=== PATIENT | female | born 1985 ===

== ENCOUNTER 2018-02-15 12:56 | Emergency (ER) | payer MEDICAID ==
[2018-02-15 13:05] VITALS: BP 137/89; PULSE 81; TEMP 98; O2SAT 99
--- NOTE | 2018-02-15 13:51 | ED PDOC ---
HPI: Female Pain Time Seen by Provider: 02/15/18 13:08 Chief Complaint (Nursing): Female Genitourinary Chief Complaint (Provider): Vaginal Bleeding History Per: Patient History/Exam Limitations: no limitations Onset/Duration Of Symptoms: Hrs (This morning) Current Symptoms Are (Timing): Still Present Additional Complaint(s): 32 year old female presents to the ED complaining of vaginal bleeding which began this morning. Patient reports she noticed bright red blood which subsided. Denies blood clots, abdominal pain, vaginal discharge, or urinary problems. Patient is 7 weeks and LMP was January 05. Patient states she has not had an ultrasound for this . She is . In the past, her gel coat sprayer was Dr. Clif Wheatley. PMD: [facility] Past Medical History Reviewed: Historical Data, Nursing Documentation, Vital Signs Vital Signs: Last Vital Signs Temp 98 F 02/15/18 13:03 Pulse 81 02/15/18 13:03 Resp 18 02/15/18 13:03 BP 137/89 02/15/18 13:03 Pulse Ox 99 02/15/18 13:03 - Medical History PMH: No Chronic Diseases - Surgical History Surgical History: (x1) - Family History Family History: States: Unknown Family Hx - Home Medications Home Medications: Ambulatory Orders Medication Instructions Recorded Oxycodone HCl/Acetaminophen 1 tab PO Q6H PRN #15 tab 08/18/14 [Percocet 325 mg-5 mg] RX: Levofloxacin [Levofloxacin 5 0 ml TOP ASDIR #0 yvan 08/18/14 ml] Erythromycin 0.5% [Ilytocin] 1 cm RIGHTEYE QID #1 tube 06/02/16 RX: Ibuprofen [Motrin Tab] 600 mg PO Q8 PRN #60 tab 06/02/16 RX: Non-Formulary 1 ea RIGHTEYE PRN PRN #1 ea 06/02/16 oxyCODONE/Acetaminophen [Percocet 1 tab PO QID PRN #12 tab 06/02/16 5/325 mg Tab] - Allergies Allergies/Adverse Reactions: Allergies Allergy/AdvReac Type Severity Reaction Status Date / Time codeine Allergy NAUSEA Verified 06/02/16 18:45 doxycycline Allergy RASH Verified 06/02/16 18:45 Review of Systems ROS Statement: Except As Marked, All Systems Reviewed And Found Negative Gastrointestinal: Negative for: Abdominal Pain Genitourinary Female: Positive for: Vaginal Bleeding. Negative for: Dysuria, Hematuria, Vaginal Discharge, Other (blood clots) Physical Exam - Reviewed Nursing Documentation Reviewed: Yes Vital Signs Reviewed: Yes - Physical Exam Appears: Positive for: Non-toxic, No Acute Distress Head Exam: Positive for: ATRAUMATIC, NORMOCEPHALIC Skin: Positive for: Normal Color, Warm, Dry Eye Exam: Positive for: Normal appearance Neck: Positive for: Normal, Painless ROM Cardiovascular/Chest: Positive for: Regular Rate, Rhythm Respiratory: Positive for: Normal Breath Sounds. Negative for: Wheezing, Respiratory Distress Gastrointestinal/Abdominal: Positive for: Normal Exam, Soft. Negative for: Tenderness Back: Positive for: Normal Inspection. Negative for: L CVA Tenderness, R CVA Tenderness Extremity: Positive for: Normal ROM Neurologic/Psych: Positive for: Alert, Oriented. Negative for: Motor/Sensory Deficits - Laboratory Results Result Diagrams: 02/15/18 14:25 02/15/18 14:25 - ECG O2 Sat by Pulse Oximetry: 99 (RA) Pulse Ox Interpretation: Normal Medical Decision Making Medical Decision Making: Initial Impression: Vaginal bleeding in differential includes ectopic , threatened miscarriage, spontaneous Initial Plan: --Type and screen stat --BMP -- serum stat --ED urine --ED urine dipstick --CBC --OB transvaginal US 15:[address] Hein. Pending US and labs. Scribe Attestation: Documented by Edin Trujillo acting as a scribe for Brianne Velasco MD. Provider Scribe Attestation: All medical record entries made by the Scribe were at my direction and personally dictated by me. I have reviewed the chart and agree that the record accurately reflects my personal performance of the history, physical exam, medical decision making, and the department course for this patient. I have also personally directed, reviewed, and agree with the discharge instructions and disposition. Disposition - Clinical Impression Clinical Impression: Threatened in early - Patient ED Disposition Is Patient to be Admitted: No Counseled Patient/Family Regarding: Studies Performed, Diagnosis - Disposition Disposition: Transfer of Care Disposition Time: 15:00 Condition: STABLE Additional Instructions: Follow up with your gel coat sprayer in 2 days for repeat hormone levels. Return to the emergency department if you develop worsened pain, weakness, heavy bleeding, or other new symptoms. Instructions: Threatened Miscarriage (DC) Forms: [employer] (Georgian) Print Language: AMHARIC
[2018-02-15 14:34] LABS: BASO # 0.1 K/uL (0.0-0.2); BASO % 1.5 % (0.0-2.0); EOS # 0.4 K/uL (0.0-0.7); EOS % 5.1 % (0.0-4.0); HEMOGLOBIN 13.6 g/dL (12.0-16.0); LYMPH # 2.7 K/uL (1.0-4.3); LYMPH % 37.6 % (20.0-40.0); MEAN CELL VOLUME 80.8 fl (81.0-99.0); MEAN CORPUSCULAR HEMOGLOBIN 26.6 pg (27.0-31.0); MONO # 0.4 K/uL (0.0-0.8); MONO % 6.3 % (0.0-10.0); NEUT # 3.5 K/uL (1.8-7.0); NEUT % 49.5 % (50.0-75.0); NRBC % 0.1 % (0.0-0.0); RBC 5.09 Mil/uL (3.80-5.20); RED CELL DISTRIBUTION WIDTH 14.5 % (11.5-14.5); WHITE BLOOD COUNT 7.1 K/uL (4.8-10.8)
[2018-02-15 14:44] LABS: BLOOD UREA NITROGEN 14 mg/dl (7-17); CALCIUM 8.9 mg/dL (8.4-10.2); GFR NON-AFRICAN AMERICAN > 60
--- NOTE | 2018-02-15 15:18 | ED PDOC ---
- Laboratory Results Result Diagrams: 02/15/18 14:25 02/15/18 14:25 - ECG O2 Sat by Pulse Oximetry: 99 (RA) Medical Decision Making Medical Decision Makin:00 Patient endorsed to this provider from Dr. Velasco. Pending US and labs. Scribe Attestation: Documented by Edin Trujillo acting as a scribe for Evelyn Hein MD. Provider Scribe Attestation: All medical record entries made by the Scribe were at my direction and personally dictated by me. I have reviewed the chart and agree that the record accurately reflects my personal performance of the history, physical exam, medical decision making, and the department course for this patient. I have also personally directed, reviewed, and agree with the discharge instructions and disposition. Pt with hcg of 5.08. US shows no IUP but no evidence of ectopic . PT continues to actively bleed but vitals remain stable. Spoke with patient's vacuum filter operator, Dr. Byrd, who will see the patient in 2 days and will arrange follow up outpatient ultrasound. Return parameters discussed with the patient. Disposition - Clinical Impression Clinical Impression: Threatened in early - POA Present On Arrival: None - Disposition Disposition: Routine/Home Disposition Time: 17:41 Condition: STABLE Additional Instructions: Follow up with your vacuum filter operator in 2 days for repeat hormone levels. Return to the emergency department if you develop worsened pain, weakness, heavy bleeding, or other new symptoms. Instructions: Threatened Miscarriage (DC) Forms: [employer] (Khmer) Print Language: VIETNAMESE
--- NOTE | 2018-02-15 16:28 | US ---
Date of service: 02/15/2018 HISTORY: vaginal bleeding COMPARISON: None available. TECHNIQUE: Transvaginal pelvic ultrasound was performed with longitudinal and transverse images submitted for interpretation. FINDINGS: Left central appears reported 01/05/2018 suggesting 5 week 6 gestation. UTERUS: Measures 7.7 x 4.0 x 4.6 cm. Uterus is normal in size appearing anteverted with no discrete myometrial lesion appreciated throughout. ENDOMETRIUM: Measures 9.0 mm in diameter. Trilaminar echo-pattern is appreciated throughout the endometrium without fluid collection or gestational sac appreciable. CERVIX: Nabothian cyst identified in the posterior cervix with the cervix otherwise unremarkable. RIGHT OVARY: Measures 3.3 x 2.1 x 2.2 cm. No solid mass. Normal flow. LEFT OVARY: Measures 2.0 x 1.6 x 2.3 cm. No solid mass. Normal flow. FREE FLUID: No significant free fluid noted. OTHER FINDINGS: None. IMPRESSION: No intrauterine gestation identified. No definitive ectopic gestation appreciable. Differential diagnosis consists of early nonvisualized intrauterine gestation, failure of gestation or nonvisualized ectopic gestation. Follow-up serial beta HCG analysis is recommended as well as one-week follow-up pelvic ultrasound.
[2018-02-15 18:27] VITALS: RESP 17
== END 2018-02-15 17:55 | disposition home or self-care (01) ==
LOC: H.ER 12:56
DX: O20.0 Threatened abortion (principal); Z3A.01 Less than 8 weeks gestation of pregnancy

== ENCOUNTER 2018-04-10 11:49 | Emergency (ER) | payer MEDICAID ==
[2018-04-10 11:53] VITALS: BMI 357.1
--- NOTE | 2018-04-10 13:00 | ED PDOC ---
HPI: General Adult Time Seen by Provider: 04/10/18 12:12 Chief Complaint (Nursing): Flu-like Symptoms Chief Complaint (Provider): Flu-like symptoms History Per: Patient History/Exam Limitations: no limitations Onset/Duration Of Symptoms: Days (1x month) Current Symptoms Are (Timing): Still Present Severity: Moderate Additional Complaint(s): 32 year old female with no significant medical history presents to the ED for an evaluation of flu-like symptoms, ongoing for 1x month. Patient reports that 1x month ago she developed a cough productive of green sputum. The cough has persisted until today, but it is dry and non-productive. Patient reports that 1x week ago she developed a fever (103 F for 3x days) and a sore throat, both of which have subsided at this time. Patient reports having bodyaches, generally feeling unwell, having continuous nasal congestion, and constipation (with one small BM yesterday). Patient denies having rhinorrhea, headaches, ear pain, shortness of breath, chest pain, nausea, vomiting, and abdominal pain. Of note: pt states that she had a miscarriage in 01/2018 and has not had a period since that time. PMD: [facility] Past Medical History Reviewed: Historical Data, Nursing Documentation, Vital Signs Vital Signs: Last Vital Signs Temp 97.7 F 04/10/18 11:53 Pulse 74 04/10/18 11:53 Resp 17 04/10/18 11:53 BP 135/77 04/10/18 11:53 Pulse Ox 100 04/10/18 11:53 SHAWNA Report Viewed: Yes - Medical History PMH: No Chronic Diseases - Surgical History Surgical History: (x1) - Family History Family History: States: No Known Family Hx - Social History Alcohol: Social Drugs: Denies - Home Medications Home Medications: Ambulatory Orders Medication Instructions Recorded Levofloxacin [Levofloxacin 5 ml] 0 ml TOP ASDIR #0 yvan 08/18/14 Oxycodone HCl/Acetaminophen 1 tab PO Q6H PRN #15 tab 08/18/14 [Percocet 325 mg-5 mg] Erythromycin 0.5% [Ilytocin] 1 cm RIGHTEYE QID #1 tube 06/02/16 Ibuprofen [Motrin Tab] 600 mg PO Q8 PRN #60 tab 06/02/16 Non-Formulary 1 ea RIGHTEYE PRN PRN #1 ea 06/02/16 oxyCODONE/Acetaminophen [Percocet 1 tab PO QID PRN #12 tab 06/02/16 5/325 mg Tab] - Allergies Allergies/Adverse Reactions: Allergies Allergy/AdvReac Type Severity Reaction Status Date / Time codeine Allergy NAUSEA Verified 04/10/18 12:23 doxycycline Allergy RASH Verified 04/10/18 12:23 Review of Systems ROS Statement: Except As Marked, All Systems Reviewed And Found Negative Constitutional: Positive for: Other (bodyahes, generally feeling unwell). Negative for: Fever (fever (103 F) 1x week ago for 3x days, has since subsided.) ENT: Positive for: Nose Congestion. Negative for: Ear Pain, Nose Discharge, Throat Pain (throat pain 1x week ago, has since subsided) Cardiovascular: Negative for: Chest Pain Respiratory: Positive for: Cough (cough was productive of green sputum at onset of symptoms, cough is now dry ). Negative for: Shortness of Breath Gastrointestinal: Positive for: Constipation. Negative for: Nausea, Vomiting, Abdominal Pain, Diarrhea Physical Exam - Reviewed Nursing Documentation Reviewed: Yes Vital Signs Reviewed: Yes - Physical Exam Appears: Positive for: Non-toxic, Uncomfortable Head Exam: Positive for: ATRAUMATIC, NORMOCEPHALIC Skin: Positive for: Normal Color, Warm, Dry Eye Exam: Positive for: Normal appearance ENT: Positive for: Other ((+) swollen nasal turbinates bilaterally, otherwise ENT exam normal) Cardiovascular/Chest: Positive for: Regular Rate, Rhythm Respiratory: Positive for: Normal Breath Sounds Gastrointestinal/Abdominal: Positive for: Normal Exam Lymphatic: Positive for: Normal Exam Neurologic/Psych: Positive for: Alert, Oriented (3x) - Laboratory Results Result Diagrams: 04/10/18 12:58 04/10/18 12:58 Urine POC: Positive - ECG O2 Sat by Pulse Oximetry: 100 (RA) Pulse Ox Interpretation: Normal - CT Scan/US US transvaginal Other Rad Studies (CT/US): Read By Radiologist, Radiology Report Reviewed (see MDM note) Medical Decision Making Medical Decision Makin:12 Initial impression: 32 year old female with flu-like symptoms. Initial plan: * CBC * CMP * XRay chest PA & LAT * upreg * rapid flu * mono * tylenol 650 mg PO * flonase * reevaluation 12:45 Upreg positive, patient informed of results. XRay chest cancelled, beta-HCG and transvaginal ultrasound ordered. 14:28 US transvaginal read and reviewed by radiologist Gestational concordance approximately 6 weeks discordance noted. Yolk sac identified Cervix: No Cervical abnormalities: Negative examination for cervical dilatation or effacement. Closed cervix. Incidental finding(s): Incidental finding: Nabothian cysts the largest measures 6 x 11 mm. Subchorionic hemorrhage: None UTERUS: 7.1 x 5.1 x 8.6 cm. ADNEXA: Right: 2.2 x 2.4 x 2.8 cm. Normal Doppler arterial waveform documented. Left: 1.5 x 2.5 x 2.6 cm. Normal Doppler arterial waveform documented Fluid in the cul-de-sac: IMPRESSION: 7 weeks 1 day live intrauterine gestation. Discordance based on gestational age derived from LMP of 13 weeks 4 days. 15:00: patient informed of ultrasound results. States that since hearing of her , her other symptoms are of no consequence to her. She generally feels a little better. Patient given [facility] and advised to take Tylenol for bodyaches. Scribe Attestation: Documented Sugey Moore, acting as a scribe for Arline Woodson PA-C. Provider Scribe Attestation: All medical record entries made by the Scribe were at my direction and personally dictated by me. I have reviewed the chart and agree that the record accurately reflects my personal performance of the history, physical exam, medical decision making, and the department course for this patient. I have also personally directed, reviewed, and agree with the discharge instructions and disposition. Disposition - Clinical Impression Clinical Impression: Viral upper respiratory illness, - Patient ED Disposition Is Patient to be Admitted: No Counseled Patient/Family Regarding: Studies Performed, Diagnosis, Need For Followup - Disposition Referrals: [facility] [Outside] Disposition: Routine/Home Disposition Time: 15:17 Condition: STABLE Additional Instructions: F/u with process area supervisor for care. Return to ER if you develop shortness of breath or recurrent fevers or if you develop abdominal pain or vaginal bleeding. You can use Tylenol for body discomfort. Avoid Ibuprofen in . Instructions: Viral Upper Respiratory Infection, Adult (DC) Forms: [employer] (Uruguayan), [facility] ED School/Work Excuse Print Language: PITCAIR[place] ISLANDER
[2018-04-10 13:50] LABS: BASO # 0.1 K/uL (0.0-0.2); BASO % 0.8 % (0.0-2.0); EOS # 0.5 K/uL (0.0-0.7); EOS % 5.5 % (0.0-4.0); HEMOGLOBIN 13.5 g/dL (12.0-16.0); LYMPH % 32.7 % (20.0-40.0); MEAN CELL VOLUME 80.6 fl (81.0-99.0); MEAN CORPUSCULAR HEMOGLOBIN 26.6 pg (27.0-31.0); MEAN PLATELET VOLUME 7.2 fl (7.2-11.7); MONO # 0.5 K/uL (0.0-0.8); MONO % 5.9 % (0.0-10.0); NEUT % 55.1 % (50.0-75.0); NRBC % 0.1 % (0.0-0.0); RBC 5.09 Mil/uL (3.80-5.20); RED CELL DISTRIBUTION WIDTH 14.4 % (11.5-14.5); WHITE BLOOD COUNT 9.1 K/uL (4.8-10.8)
[2018-04-10 14:04] LABS: ALB/GLOB RATIO 1.1 (1.0-2.1); ALBUMIN 4.2 g/dL (3.5-5.0); ALT/SGPT 26 U/L (9-52); AST/SGOT 26 U/L (14-36); BLOOD UREA NITROGEN 5 mg/dl (7-17); CALCIUM 9.2 mg/dL (8.4-10.2); GFR NON-AFRICAN AMERICAN > 60
--- NOTE | 2018-04-10 14:31 | US ---
Date of service: 04/10/2018 PROCEDURE: First trimester ultrasound HISTORY: + urine preg, unidentified gestation 01/2018 COMPARISON: None TECHNIQUE: Standard protocol for this study/examination. FINDINGS: LMP: 01/05/2018 Prior examinations from the current : None TECHNIQUE: Real-time 2D imaging, duplex and color Doppler. FINDINGS: Cardiac activity: Present Rate: 4 8 BPM Measurements: Peculiar rump length: 1.08 cm Gestational age based on CRL 7 weeks 1 day Gestational age 7 weeks 1 day based on gestational sac measurement 2.50 cm Gestational age derived from LMP: 13 weeks 4 days DIOMEDES based on LMP: 10/12/2018 DIOMEDES based on biometry: 11/26/2018. Gestational concordance approximately 6 weeks discordance noted. Yolk sac identified Cervix: No Cervical abnormalities: Negative examination for cervical dilatation or effacement. Closed cervix. Incidental finding(s): Incidental finding: Nabothian cysts the largest measures 6 x 11 mm. Subchorionic hemorrhage: None UTERUS: 7.1 x 5.1 x 8.6 cm. ADNEXA: Right: 2.2 x 2.4 x 2.8 cm. Normal Doppler arterial waveform documented. Left: 1.5 x 2.5 x 2.6 cm. Normal Doppler arterial waveform documented Fluid in the cul-de-sac: IMPRESSION: 7 weeks 1 day live intrauterine gestation. Discordance based on gestational age derived from LMP of 13 weeks 4 days.
[2018-04-10 15:29] VITALS: BP 122/70; PULSE 78; RESP 18; TEMP 98
[2018-04-11 21:10] VITALS: O2SAT 100
== END 2018-04-10 15:17 | disposition home or self-care (01) ==
LOC: H.ER 11:49
DX: J11.1 Influenza due to unidentified influenza virus with other respiratory manifestations (principal); O34.41 Maternal care for other abnormalities of cervix, first trimester; O99.511 Diseases of the respiratory system complicating pregnancy, first trimester; O99.611 Diseases of the digestive system complicating pregnancy, first trimester; N88.8 Other specified noninflammatory disorders of cervix uteri; K59.00 Constipation, unspecified; Z3A.13 13 weeks gestation of pregnancy

== ENCOUNTER 2018-05-18 11:17 | Emergency (ER) | payer MEDICAID ==
[2018-05-18 11:19] VITALS: BMI 357.1
[2018-05-18 11:43] VITALS: BP 112/75; PULSE 105; RESP 19; TEMP 98.7; O2SAT 97
[2018-05-18 12:15] LABS: BASO # 0.1 K/uL (0.0-0.2); BASO % 0.7 % (0.0-2.0); EOS # 0.9 K/uL (0.0-0.7); LYMPH % 23.9 % (20.0-40.0); MEAN CELL VOLUME 78.5 fl (81.0-99.0); MEAN CORPUSCULAR HEMOGLOBIN 26.1 pg (27.0-31.0); MEAN CORPUSCULAR HGB CONC 33.2 g/dL (33.0-37.0); MEAN PLATELET VOLUME 7.4 fl (7.2-11.7); MONO # 0.5 K/uL (0.0-0.8); MONO % 6.3 % (0.0-10.0); NEUT # 4.8 K/uL (1.8-7.0); NEUT % 58.1 % (50.0-75.0); NRBC % 0.3 % (0.0-0.0); RBC 4.61 Mil/uL (3.80-5.20); RED CELL DISTRIBUTION WIDTH 14.5 % (11.5-14.5); WHITE BLOOD COUNT 8.3 K/uL (4.8-10.8)
[2018-05-18 12:21] LABS: SQUAMOUS EPITHIAL 23 /hpf (0-5); URINE BACTERIA RARE (<OCC); URINE BILIRUBIN NEGATIVE (NEGATIVE); URINE BLOOD SMALL (NEGATIVE); URINE CLARITY CLOUDY (Clear); URINE COLOR YELLOW (YELLOW); URINE GLUCOSE (UA) NEG (NEGATIVE); URINE LEUKOCYTE ESTERASE TRACE Leu/uL (Negative); URINE PROTEIN 30 mg/dL (NEGATIVE)
--- NOTE | 2018-05-18 12:28 | ED PDOC ---
HPI: Female Pain Time Seen by Provider: 05/18/18 11:36 Chief Complaint (Nursing): Female Genitourinary Chief Complaint (Provider): vaginal spotting, History Per: Patient History/Exam Limitations: no limitations Onset/Duration Of Symptoms: Days (3), Intermittent Episodes Current Symptoms Are (Timing): Intermittent Episodes Severity: Mild Quality Of Discomfort: Pressure. denies: Sharp, Dull, Aching, Cramping, Burning, Stabbing Associated Symptoms: denies: Fever, Chills, Nausea, Vomiting, Back Pain, Urinary Symptoms Additional Complaint(s): 32yo female states approx 14 weeks presents c/o brown/red discharge when she wipes over the weekend. States feels mild "pulling" on right side but denies pelvic pain or cramping. Denies urinary symptoms or back pain. Denies weakness, fever or sexual activity within last 2 weeks. Notes ongoing nasal congestion and some cough/ wheeze, denies swelling, chest pain or syncope. Has prior hx of placental previa on prior . OB [place] Abnormal Vaginal Bleeding: Yes Last Menstral Period: unsure Past Medical History Reviewed: Historical Data, Nursing Documentation, Vital Signs Vital Signs: Last Vital Signs Temp 98.7 F 05/18/18 11:38 Pulse 105 H 05/18/18 11:38 Resp 19 05/18/18 11:38 BP 112/75 05/18/18 11:38 Pulse Ox 97 05/18/18 11:38 - Medical History PMH: No Chronic Diseases - Surgical History Surgical History: (x1) - Family History Family History: States: Unknown Family Hx - Social History Current smoker - smoking cessation education provided: No - Home Medications Home Medications: Ambulatory Orders Medication Instructions Recorded Oxycodone HCl/Acetaminophen 1 tab PO Q6H PRN #15 tab 08/18/14 [Percocet 325 mg-5 mg] RX: Levofloxacin [Levofloxacin 5 0 ml TOP ASDIR #0 yvan 08/18/14 ml] Erythromycin 0.5% [Ilytocin] 1 cm RIGHTEYE QID #1 tube 06/02/16 RX: Ibuprofen [Motrin Tab] 600 mg PO Q8 PRN #60 tab 06/02/16 RX: Non-Formulary 1 ea RIGHTEYE PRN PRN #1 ea 03/05/17 oxyCODONE/Acetaminophen [Percocet 1 tab PO QID PRN #12 tab 06/02/16 5/325 mg Tab] RX: Albuterol HFA [Ventolin HFA 90 1 - 2 puff IH Q4 PRN #1 inhaler 05/18/18 mcg/actuation (8 g)] - Allergies Allergies/Adverse Reactions: Allergies Allergy/AdvReac Type Severity Reaction Status Date / Time codeine Allergy NAUSEA Verified 04/10/18 12:23 doxycycline Allergy RASH Verified 04/10/18 12:23 Review of Systems ROS Statement: Except As Marked, All Systems Reviewed And Found Negative Constitutional: Negative for: Fever Eyes: Negative for: Vision Change ENT: Negative for: Throat Pain Cardiovascular: Negative for: Chest Pain Respiratory: Positive for: Cough, Wheezing Gastrointestinal: Negative for: Nausea, Abdominal Pain Genitourinary Female: Positive for: Vaginal Bleeding. Negative for: Dysuria, Incontinence, Hematuria, Vaginal Discharge, Pelvic Pain Musculoskeletal: Negative for: Neck Pain, Back Pain Skin: Negative for: Rash, Lesions Neurological: Negative for: Weakness, Numbness, Headache, Dizziness Psych: Negative for: Suicidal ideation Physical Exam - Reviewed Nursing Documentation Reviewed: Yes Vital Signs Reviewed: Yes - Physical Exam Appears: Positive for: Well, Non-toxic, No Acute Distress Head Exam: Positive for: ATRAUMATIC, NORMAL INSPECTION, NORMOCEPHALIC Skin: Positive for: Normal Color, Warm, DRY Eye Exam: Positive for: EOMI, Normal appearance, PERRL ENT: Positive for: Normal ENT Inspection Neck: Positive for: Normal, Painless ROM Cardiovascular/Chest: Positive for: Regular Rate, Rhythm Respiratory: Positive for: Wheezing. Negative for: Respiratory Distress Pulses-Radial (L): 3+/4+ Pulses-Radial (R): 3+/4+ Gastrointestinal/Abdominal: Positive for: Soft. Negative for: Tenderness, Guarding Back: Positive for: Normal Inspection Extremity: Positive for: Normal ROM Neurologic/Psych: Positive for: Alert, Oriented - Laboratory Results Result Diagrams: 05/18/18 12:10 05/18/18 12:10 - ECG O2 Sat by Pulse Oximetry: 97 Medical Decision Making Medical Decision Making: UA +7 WBC but 23epith cells, dirty catch Hgb normal Obtain US OB r/o previa Accession No. : [id number] Patient Name / ID : ZEFERINO HUFFMAN / [id number] Exam Date : 05/18/2018 13:02:27 ( Approved ) Study Comment : Sex / Age : F / 32Y Creator : Viola Lopez MD Dictator : Viola Lopez MD Residential Building Inspector : Floral Assistant : Viola Lopez MD Approver2 : Report Date : 05/18/2018 14:11:00 My Comment : This report is currently processing and HAS NOT BEEN OFFICIALLY SIGNED BY THE PHYSICIAN - ESTIMATED TIME OF APPROVAL IS 05/18/2018 14:16. Date of service: 05/18/2018 PROCEDURE: OB Pelvic Ultrasound HISTORY: 14wk preg, spotting hx prior placenta previa COMPARISON: None available. FINDINGS: UTERUS: Single Live intrauterine fetus in transverse presentation. BPD: 2.32 cm corresponding to 13 weeks and 6 days of gestational age. HC: 8.95 cm corresponding to 14 weeks and 0 day of gestational age. AC: 6.86 cm corresponding to 13 weeks and 3 days of gestational age. FL: 1.04 cm corresponding to 13 weeks and 0 day of gestational age. age (Ultrasound estimated): 13 weeks and 4 days Date of delivery (Ultrasound estimated) : 11/19/2018 Heart rate: 154 bpm. Rhea-gestational hemorrhage: None. Placenta is posterior. CERVIX: Long and closed. No cervical abnormality seen. RIGHT OVARY: Not visualized. LEFT OVARY: Not visualized. FREE FLUID: None. OTHER FINDINGS: None. IMPRESSION: Single live intrauterine fetus with mean gestational age of 13 weeks and 4 days. The estimated date of delivery by ultrasound is 11/19/2018. The ultrasound dates correspond with the clinical dates. dr buckley paged to inform of ED visit Rx albuterol HFA for scant wheeze Followup OB, pelvic rest Disposition - Clinical Impression Clinical Impression: Vaginal spotting, , Wheezing - Disposition Referrals: Non [facility] Provider, [Primary Care Provider] - Disposition: Routine/Home Disposition Time: 13:15 Condition: STABLE Additional Instructions: Recommend pelvic rest, avoid heavy exertion, heavy lifting or intercourse. See OB doctor as directed. Return to ER for any worse or new symptoms. Use albuterol Prescriptions: RX: Albuterol HFA [Ventolin HFA 90 mcg/actuation (8 g)] 1 - 2 puff IH Q4 PRN #1 inhaler PRN Reason: Shortness Of Breath Instructions: Activity During , Bleeding With Forms: [email or web address] (Bermudian)
[2018-05-18 12:29] LABS: ALB/GLOB RATIO 1.1 (1.0-2.1); ALBUMIN 3.8 g/dL (3.5-5.0); ALT/SGPT 25 U/L (9-52); AST/SGOT 23 U/L (14-36); BLOOD UREA NITROGEN 9 mg/dl (7-17); CALCIUM 9.4 mg/dL (8.4-10.2); GFR NON-AFRICAN AMERICAN > 60
[2018-05-18] MEDS ORDERED: Albuterol 0.083% Inhal Sol (2.5 mg/3 mL) UD INH STA (12:34)
[2018-05-18] MEDS ORDERED: Albuterol 0.083% Inhal Sol (2.5 mg/3 mL) UD ONE (13:04)
--- NOTE | 2018-05-18 14:14 | US ---
Date of service: 05/18/2018 PROCEDURE: OB Pelvic Ultrasound HISTORY: 14wk preg, spotting hx prior placenta previa COMPARISON: None available. FINDINGS: UTERUS: Single Live intrauterine fetus in transverse presentation. BPD: 2.32 cm corresponding to 13 weeks and 6 days of gestational age. HC: 8.95 cm corresponding to 14 weeks and 0 day of gestational age. AC: 6.86 cm corresponding to 13 weeks and 3 days of gestational age. FL: 1.04 cm corresponding to 13 weeks and 0 day of gestational age. age (Ultrasound estimated): 13 weeks and 4 days Date of delivery (Ultrasound estimated) : 11/19/2018 Heart rate: 154 bpm. Rhea-gestational hemorrhage: None. Placenta is posterior. CERVIX: Long and closed. No cervical abnormality seen. RIGHT OVARY: Not visualized. LEFT OVARY: Not visualized. FREE FLUID: None. OTHER FINDINGS: None. IMPRESSION: Single live intrauterine fetus with mean gestational age of 13 weeks and 4 days. The estimated date of delivery by ultrasound is 11/19/2018. The ultrasound dates correspond with the clinical dates.
== END 2018-05-18 15:00 | disposition home or self-care (01) ==
LOC: H.ER 11:17 → SUPCPDRO 11:17 → H.ER 15:00
DX: O26.851 Spotting complicating pregnancy, first trimester (principal); O99.511 Diseases of the respiratory system complicating pregnancy, first trimester; R06.2 Wheezing; Z36.9 Encounter for antenatal screening, unspecified; Z3A.13 13 weeks gestation of pregnancy

== ENCOUNTER 2018-07-29 13:26 | Emergency (ER) | payer MEDICAID, OTHER ==
[2018-07-29 14:15] VITALS: O2SAT 100
[2018-07-29] MEDS ORDERED: Albuterol 0.083% Inhal Sol (2.5 mg/3 mL) UD INH STA (14:45)
[2018-07-29] MEDS ORDERED: Albuterol 0.083% Inhal Sol (2.5 mg/3 mL) UD ONE (15:03)
--- NOTE | 2018-07-29 15:33 | ED PDOC ---
HPI: CCC, URI, Sore Throat Time Seen by Provider: 07/29/18 14:19 Chief Complaint (Nursing): Shortness Of Breath Chief Complaint (Provider): Cough, SOB History Per: Patient History/Exam Limitations: no limitations Onset/Duration Of Symptoms: Days (x3) Current Symptoms Are (Timing): Still Present Additional Complaint(s): 33yo female who is 24 weeks presents to ED for evaluation of a dry cough associated with lower abdominal pain when coughing and shortness of breath for the past three days. Patient additionally noting some nasal congestion, but otherwise denies fever and chest pain. She reports speaking to her cad drafter who advised her to come to ED for further evaluation. Forest Ecologist: Clif Byrd Past Medical History Reviewed: Historical Data, Nursing Documentation, Vital Signs Vital Signs: Last Vital Signs Temp 98.9 F 07/29/18 14:04 Pulse 97 H 07/29/18 14:04 Resp 20 07/29/18 14:08 BP 115/63 07/29/18 14:04 Pulse Ox 100 07/29/18 14:08 Primary Care Provider: FAMILY PROVIDER,NO - Medical History PMH: Asthma (childhood) - Surgical History Surgical History: (x1) - Family History Family History: States: Unknown Family Hx - Social History Current smoker - smoking cessation education provided: Yes (heavy smoker) Alcohol: None Drugs: Denies - Immunization History Hx Tetanus Toxoid Vaccination: No Hx Influenza Vaccination: No Hx Pneumococcal Vaccination: No - Home Medications Home Medications: Ambulatory Orders Medication Instructions Recorded Levofloxacin [Levofloxacin 5 ml] 0 ml TOP ASDIR #0 yvan 08/18/14 Oxycodone HCl/Acetaminophen 1 tab PO Q6H PRN #15 tab 08/18/14 [Percocet 325 mg-5 mg] Erythromycin 0.5% [Ilytocin] 1 cm RIGHTEYE QID #1 tube 06/02/16 Ibuprofen [Motrin Tab] 600 mg PO Q8 PRN #60 tab 06/02/16 Non-Formulary 1 ea RIGHTEYE PRN PRN #1 ea 06/02/16 oxyCODONE/Acetaminophen [Percocet 1 tab PO QID PRN #12 tab 06/02/16 5/325 mg Tab] Albuterol HFA [Ventolin HFA 90 1 - 2 puff IH Q4 PRN #1 inhaler 05/18/18 mcg/actuation (8 g)] Albuterol 0.083% [Albuterol 3 ml IH Q4 PRN #20 neb 07/29/18 Sulfate 3 Ml] Mask, Face [Nebulizer Aerosol Mask 1 dev XX PRN #1 dev 07/29/18 Adult] Nebulizer [Aeroeclipse II] 1 each ASDIR #1 each 07/29/18 predniSONE [predniSONE Tab] 20 mg PO DAILY #3 tab 07/29/18 - Allergies Allergies/Adverse Reactions: Allergies Allergy/AdvReac Type Severity Reaction Status Date / Time codeine Allergy NAUSEA Verified 04/10/18 12:23 doxycycline Allergy RASH Verified 04/10/18 12:23 Review of Systems ROS Statement: Except As Marked, All Systems Reviewed And Found Negative Constitutional: Negative for: Fever ENT: Positive for: Nose Congestion Cardiovascular: Negative for: Chest Pain Respiratory: Positive for: Cough, Shortness of Breath Gastrointestinal: Positive for: Abdominal Pain (lower, while coughing) Physical Exam - Reviewed Nursing Documentation Reviewed: Yes Vital Signs Reviewed: Yes - Physical Exam Appears: Positive for: No Acute Distress Head Exam: Positive for: ATRAUMATIC, NORMAL INSPECTION, NORMOCEPHALIC Skin: Positive for: Normal Color, Warm, DRY Eye Exam: Positive for: EOMI, Normal appearance, PERRL ENT: Positive for: Normal ENT Inspection Neck: Positive for: Normal, Painless ROM, Supple Cardiovascular/Chest: Positive for: Regular Rate, Rhythm Respiratory: Positive for: Wheezing (bilateral expiratory wheezing in lungs). Negative for: Respiratory Distress Gastrointestinal/Abdominal: Positive for: Normal Exam, Soft, Other (gravid). Negative for: Tenderness Back: Positive for: Normal Inspection Extremity: Positive for: Normal ROM (all extremities) Neurological/Psych: Positive for: Awake, Alert, Oriented (x3) - ECG O2 Sat by Pulse Oximetry: 100 (RA) Pulse Ox Interpretation: Normal Nebulizer Treatments/Peak Flow - Duonebs Number of Bronchodilator Doses given?: 1 - Steroid Treatment Steroid: Not Clinically Indicated - Clinical Response Clinical Response: Improved Medical Decision Making Medical Decision Making: Time: 1405 Initial Impression: SOB, wheezing DDx includes asthma exacerbation and bronchitis --no indication for CXR as patient has no fever, a history of asthma, and there are risks associated with radiation in --will defer steroids due to and patient refusal to take steroids in ER or at home Initial Plan: --EKG --U-dip --Albuterol 2.5 mg INH --Peak flow pre/post --Reevaluation Scribe Attestation: Documented by Sachin Calloway training under Ankita Acuña, acting as a scribe for Brianne Velasco MD. Provider Scribe Attestation: All medical record entries made by the Scribe were at my direction and personally dictated by me. I have reviewed the chart and agree that the record accurately reflects my personal performance of the history, physical exam, medical decision making, and the department course for this patient. I have also personally directed, reviewed, and agree with the discharge instructions and disposition. Disposition - Clinical Impression Clinical Impression: Asthma exacerbation - Patient ED Disposition Is Patient to be Admitted: No Doctor Will See Patient In The: Office Counseled Patient/Family Regarding: Studies Performed, Diagnosis, Need For Followup - Disposition Referrals: Clif Dykes MD [Staff Provider] - Disposition: Routine/Home Disposition Time: 15:51 Condition: GOOD Additional Instructions: ARMIDA MCGARRY, thank you for letting us take care of you today. Your provider was Brianne Velasco MD and you were treated for 24 WEEKS: WHEEZING. The emergency medical care you received today was directed at your acute symptoms. If you were prescribed any medication, please fill it and take as directed. It may take several days for your symptoms to resolve. Return to the Emergency Department if your symptoms worsen, do not improve, or if you have any other problems. Please contact your doctor or call one of the physicians/clinics you have been referred to that are listed on the Patient Visit Information form that is included in your discharge packet. Bring any paperwork you were given at discharge with you along with any medications you are taking to your follow up visit. Our treatment cannot replace ongoing medical care by a primary care provider outside of the emergency department. Thank you for allowing the [facility] team to be part of your care today. Prescriptions: Albuterol 0.083% [Albuterol Sulfate 3 Ml] 3 ml IH Q4 PRN #20 neb PRN Reason: Wheezing Mask, Face [Nebulizer Aerosol Mask Adult] 1 dev XX PRN #1 dev Nebulizer [Aeroeclipse II] 1 each MC ASDIR #1 each predniSONE [predniSONE Tab] 20 mg PO DAILY #3 tab Instructions: Asthma in Adults Forms: [employer] (British)
[2018-07-29 16:06] VITALS: BP 107/71; PULSE 98; TEMP 97.9
[2018-07-29 18:44] VITALS: RESP 17
--- NOTE | 2018-07-30 09:02 | CARD ---
APPROVED REPORT Date of service: 07/29/2018 EKG Measurement Heart [id number] MD 112P [id number] <Conclusion> Unusual P axis, possible ectopic atrial rhythm Abnormal Electrocardiogram
== END 2018-07-29 16:08 | disposition home or self-care (01) ==
LOC: H.ER 13:26 → H.EROB2 13:26 → H.ER 16:08
DX: J45.901 Unspecified asthma with (acute) exacerbation (principal); O99.512 Diseases of the respiratory system complicating pregnancy, second trimester; Z3A.24 24 weeks gestation of pregnancy; O99.332 Smoking (tobacco) complicating pregnancy, second trimester; O26.892 Other specified pregnancy related conditions, second trimester